=== PATIENT | male | born 1945 | race Caucasian/White ===

== ENCOUNTER → 2021-03-15 08:07 | Outpatient (CLI) | payer MEDICARE, BC, SELFPAY ==
--- NOTE | 2021-03-15 | DI.US.S_ITS ---
PROCEDURE: US ABD AORTA ANEURYSM SCREEN INDICATIONS: AAA SCREEN TECHNIQUE: Real time scanning was performed of the aorta and iliac arteries, with image documentation. COMPARISON: None. FINDINGS: Aorta: Proximal aortic diameter measures 1.8 cm. Mid-aorta measures 1.6 cm. Distal aortic diameter is 1.9 cm. Iliac arteries: Right common iliac artery measures 0.6 cm. Left common iliac artery measures 0.6 cm. IMPRESSION: Negative for aneurysm. Dictated by: Craig Colin M.D. on 03/15/2021 at 9:11 Approved by: Craig Colin M.D. on 03/15/2021 at 9:12
== END ==
PROVIDERS: PCP Family Medicine; Referring Provider Family Medicine; Visit Provider Family Medicine
DX: Z13.6 Encounter for screening for cardiovascular disorders (principal)
CPT/HCPCS: 76706

== ENCOUNTER 2024-05-09 09:58 | Day surgery (SDC) | payer MEDICARE, BC, SELFPAY ==
--- NOTE | 2024-05-09 | PATH_ITS ---
[facility] Accession Number: [id number] No. of containers..03 Tissue . 01 Material submitted: . PART A: cecum - CECAL POLYPS PART B: colon - ASCENDING POLYP PART C: colon - DESCENDING POLYP . 01 Diagnosis: CECUM, POLYPECTOMIES: Tubular adenoma(s), 2 fragments. - COLON, ASCENDING, POLYPECTOMY: Tubular adenoma. - COLON, DESCENDING, POLYPECTOMY: Tubular adenoma. [facility] 05/13/2024 1539 Local . 01 Electronically signed: . Tamara Hall MD, Pathologist NPI- [id number] . 01 Gross description: . A. Received in formalin with two patient identifiers and cecal polyps, are multiple junior soft tissue fragments aggregating to 1.8 x 1.0 x 0.3 cm. Filtered and submitted in cassette A1 B. Received in formalin with two patient identifiers and ascending polyp, is a single junior soft tissue fragment 1.0 cm in greatest dimension. Submitted in cassette B1. C. Received in formalin with two patient identifiers and descending polyp, is a single junior soft tissue fragment 1.4 cm in greatest dimension. Submitted in cassette C1. ([id number]) /[facility] 05/10/2024 1004 Local . 01 Pathologist provided ICD-10: Z12.11 . 01 CPT . 006619, [id number], [id number] Specimen Comment: A courtesy copy of this report has been sent to [phone] Performed at: [address] [id number] MD Dariusz Keys MD Phone: [phone]
[2024-05-09 10:20] VITALS: BP 171/85; PULSE 75; RESP 16; TEMP 36.1; O2SAT 99
--- NOTE | 2024-05-09 10:24 | PM.HP.1 ---
History of Present Illness History of Present Illness Date Patient Seen: 05/09/24 Time Patient Seen: 10:24 Chief complaint: SDC Narrative: Hussein is a 78 year old man here for a colonoscopy. His last was 6 or 7 years ago and he believes polyps were removed. No known family history of colon cancer. Meds Home Medications and Allergies Home Medications Medication Instructions Recorded Confirmed Type finasteride 5 mg tablet 5 mg PO DAILY 05/09/24 05/09/24 History Allergies Allergy/AdvReac Type Severity Reaction Status Date / Time No Known Drug Allergies Allergy Verified 05/09/24 10:15 Exam Const General: No acute distress Resp Effort & Inspection: normal respiratory effort Assessment & Plan Assessment and plan (1) Colon cancer screening: Status: Acute Plan We reviewed the risks and benefits of colonoscopy and he would like to proceed. Time-Based Coding :: [TOTAL MINUTES] spent with patient and on the chart (including review of chart, obtaining history, exam, reviewing outside data, placing orders, documenting exam and treatment plan, and counseling patient) on [DATE].
[2024-05-09] MEDS: LACTATED RINGERS 1,000 ML 42 ML IV (10:31)
--- NOTE | 2024-05-09 11:22 | PM.HP.1 ---
History of Present Illness History of Present Illness [place] [facility] [place]ative: Hussein is a 78 year old man here for a colonoscopy. His last was 6 or 7 years ago and he believes polyps were removed. No known family history of colon cancer. Meds Home Medications and Allergies Home Medications Medication Instructions Recorded Confirmed Type finasteride 5 mg tablet 5 mg PO DAILY 05/09/24 05/09/24 History Allergies Allergy/AdvReac Type Severity Reaction Status Date / Time No Known Drug Allergies Allergy Verified 05/09/24 10:15 Exam Vital Signs (past 8 hours): - 05/09/24 10:20 Temperature 96.9 F L Pulse Rate 75 Respiratory Rate 16 Blood Pressure 171/85 H Pulse Oximetry 99 Oxygen Delivery Method Room Air Oxygen Delivery Method Room Air Assessment & Plan Assessment and plan (1) Colon cancer screening: Status: Acute Plan We reviewed the risks and benefits of colonoscopy and he would like to proceed Time-Based Coding :: [TOTAL MINUTES] spent with patient and on the chart (including review of chart, obtaining history, exam, reviewing outside data, placing orders, documenting exam and treatment plan, and counseling patient) on [DATE].
--- NOTE | 2024-05-09 11:23 | PM.OP.COLON ---
Operative Date/Time/Diagnoses Date of procedure: 05/09/24 Time of procedure: 11:23 Pre-op diagnosis: Colon cancer screening Procedure & Clinicians Study performed: Colonoscopy Same procedure as scheduled: Yes Surgeon: Abimael Soler Procedure Notes Procedure in detail: Surgeon: Abimael Soler MD Anesthesia: Virgil Anderson D.O. Procedure: The patient was brought to the endoscopy suite, placed in left lateral decubitus position. The patient was connected to monitoring devices. A time-out was performed. Sedation was administered. Once the patient was adequately sedated, a digital rectal exam was performed and was normal. The scope was then inserted and advanced to the cecum where the appendiceal orifice was identified and photographed. The scope was then slowly withdrawn over greater than 6 minutes. The mucosa was thoroughly inspected. There were 2 5 mm polyps in the cecum removed with a cold snare. There was 1 5 mm polyp in the ascending colon removed with a cold snare. There was 1 5 mm polyp in the descending colon removed with a cold snare. The scope was retroflexed in the rectum. No other abnormalities were noted. The scope was straightened and removed. The patient was awakened and brought to recovery. Scope withdrawal time: 14 minutes Sedation time: 19 minutes EBL: 5 mL Findings: 5 small polyps as detailed above Post-procedure Disposition: PACU
[2024-05-09 11:25] VITALS: BP 88/48; PULSE 63; RESP 16; TEMP 36.9; O2SAT 94
[2024-05-09 11:30] VITALS: BP 112/63; PULSE 77; RESP 17; O2SAT 97
[2024-05-09 11:33] VITALS: BP 106/65; PULSE 72; RESP 19; O2SAT 98
[2024-05-09 11:35] VITALS: BP 128/71; PULSE 69; RESP 19; O2SAT 98
[2024-05-09 11:39] VITALS: BP 134/72; PULSE 64; RESP 16; TEMP 36.7; O2SAT 98
== END 2024-05-09 11:48 | disposition home or self-care (01) ==
PROVIDERS: PCP Family Medicine; Referring Provider Surgery; Visit Provider Surgery
PROC: 0DJD8ZZ Inspection of Lower Intestinal Tract, Via Natural or Artificial Opening Endoscopic (ICD-10-PCS; CPT 45378; principal; 2024-05-09 11:00)
DX: Z12.11 Encounter for screening for malignant neoplasm of colon (principal); D12.0 Benign neoplasm of cecum; D12.2 Benign neoplasm of ascending colon; D12.4 Benign neoplasm of descending colon
CPT/HCPCS: 45385; J2704

== ENCOUNTER → 2025-01-10 15:42 | Outpatient (CLI) | payer MEDICARE, BC, SELFPAY ==
--- NOTE | 2025-01-10 15:45 | DI.RAD.S_ITS ---
PROCEDURE: XR LUMBAR SPINE 6V W BENDING INDICATIONS: R LEG PAIN TECHNIQUE: 7 views of the lumbar spine acquired, including flexion and extension views. COMPARISON: None. FINDINGS: Bones: 5 nonrib-bearing vertebrae are present. Mild levocurvature of the lower lumbar spine. Mild retrolisthesis of L2 on L3 and L3 on L4.. No vertebral body compression fractures. No suspicious bony lesions. There is multilevel facet arthropathy, worse at L4-5 and L5-S1. Mild multilevel disc height loss with degenerative endplate changes and spurring is present. Soft tissues: Overlying bowel gas pattern is normal. No suspicious soft tissue calcifications. Atherosclerotic vascular calcifications. Flexion/extension: There is limited range of motion, with preserved alignment. IMPRESSION: Multilevel degenerative changes of the lumbar spine with limited range of motion. Dictated by: Anibal Guerra M.D. on 01/12/2025 at 21:47 Approved by: Anibal Guerra M.D. on 01/12/2025 at 21:48
== END ==
PROVIDERS: PCP Family Medicine; Referring Provider Family Medicine; Visit Provider Family Medicine
DX: M47.816 Spondylosis without myelopathy or radiculopathy, lumbar region (principal); M47.817 Spondylosis without myelopathy or radiculopathy, lumbosacral region; M79.604 Pain in right leg
CPT/HCPCS: 72114

== ENCOUNTER 2025-01-14 12:34 | Emergency (ER) | payer MEDICARE, BC, SELFPAY ==
[2025-01-14 12:40] VITALS: BP 178/79; PULSE 77; RESP 18; TEMP 36.9; O2SAT 100; BMI 26.0
--- NOTE | 2025-01-14 13:14 | DI.US.S_ITS ---
PROCEDURE: US PERIPH VENOUS LOW EXTREM RT INDICATIONS: leg pain TECHNIQUE: Real-time imaging, as well as color and pulse Doppler interrogation, were performed of the lower extremity deep veins from the inguinal ligament to the popliteal fossa, with documentation of the visualized calf veins. COMPARISON: None. FINDINGS: The common femoral, femoral, popliteal, and the visualized calf veins are normally compressible, and free of intraluminal thrombus. Color and pulse Doppler demonstrate normal phasic intraluminal flow. There is normal augmentation response to distal compression maneuver. IMPRESSION: No evidence of DVT in visualized right lower extremity veins. Dictated by: Oscar Chau M.D. on 01/14/2025 at 14:08 Approved by: sOcar Chau M.D. on 01/14/2025 at 14:15
--- NOTE | 2025-01-14 15:13 | ED.EXTPRO ---
HPI - Extremity Problem <Mundo Lobo PA-C - Last Filed: 01/14/25 15:23> General Chief complaint: Extremity Problem,Nontraumatic Stated complaint: Pain in right leg Time Seen by Provider: 01/14/25 13:14 Source: patient and family Mode of arrival: Ambulatory History of Present Illness HPI Narrative: 79-year-old male presents to the ED with 2 weeks of right thigh pain. Patient has seen his PCP for this twice already. PCP suspects a lower back etiology, obtained a lumbar spine x-ray which was negative. Patient denies trauma, injuries. Patient took 1 dose of gabapentin yesterday, however PCP increased his dose to 300 mg t.i.d. this morning. Patient denies lower back pain, fever, chills, dysuria, urinary hesitancy, saddle paresthesias, weakness, numbness, tingling. Patient has difficulty localizing the pain, however describes it as being the right front thigh. Related Data Home Medications Medication Instructions Recorded Confirmed finasteride 5 mg tablet 5 mg PO DAILY 05/09/24 05/09/24 Previous Rx's Medication Instructions Recorded cyclobenzaprine 10 mg tablet 10 mg PO TID PRN muscle spasm #14 01/14/25 tabs gabapentin 300 mg capsule 300 mg PO TID 10 days #30 caps 01/14/25 tramadol 50 mg tablet 50 mg PO Q8H PRN pain #14 tabs 01/14/25 Allergies Allergy/AdvReac Type Severity Reaction Status Date / Time No Known Drug Allergies Allergy Verified 05/09/24 10:15 Review of Systems <Mundo Lobo PA-C - Last Filed: 01/14/25 15:23> Constitutional Constitutional: Denies chills, Denies fatigue, Denies fever(s), Denies frequent falls, Denies lethargy and Denies weakness Eyes Eyes: Denies change in vision, Denies eye discharge, Denies irritation and Denies loss of vision ENT Ears, Nose, Mouth, and Throat: Denies change in voice, Denies dizziness, Denies neck pain, Denies sore throat and Denies throat swelling Cardiovascular Cardiovascular: Denies chest pain, Denies irregular heart rhythm, Denies lightheadedness, Denies palpitations, Denies dyspnea, Denies dyspnea on exertion and Denies orthopnea Respiratory Respiratory: Denies cough, Denies dyspnea, Denies dyspnea on exertion and Denies wheezing Gastrointestinal Gastrointestinal: Denies abdominal pain, Denies change in bowel habits, Denies diarrhea, Denies nausea and Denies vomiting Musculoskeletal Musculoskeletal: Denies neck pain and Denies numbness Comments: Right front thigh pain Integumentary/Breasts Skin/Breast: Denies pruritus, Denies erythema, Denies rash and Denies wounds Neurologic Neurologic: Denies behavioral changes, Denies confusion, Denies dizziness, Denies frequent falls, Denies loss of vision, Denies numbness and Denies weakness Psychiatric Psychiatric: Denies anxiety, Denies behavioral changes, Denies confusion, Denies depression, Denies homicidal ideation and Denies suicidal ideation Endocrine Endocrine: Denies fatigue, Denies flushing and Denies palpitations Hematologic/Lymphatic Hematologic/Lymphatic: Denies easy bruising Allergic/Immunologic Allergic/Immunologic: Denies urticaria, Denies throat swelling and Denies wheezing Patient History <Mundo Lobo PA-C - Last Filed: 01/14/25 15:23> Social History Smoking Status: Never smoker alcohol intake: never Smoking Status: Never smoker Exam <Mundo Lobo PA-C - Last Filed: 01/14/25 15:23> Narrative Exam Narrative: Const General:?cooperative, healthy appearing and comfortable [facility] Head:?normal to inspection Ears:?hearing grossly normal bilaterally Nose:?external nose normal Face and sinus:?normal facial exam and sinuses nontender Mouth:?oral mucosae normal Throat:?posterior oropharynx normal Eyes General:?appearance normal, both eyes and all related structures Neck Neck:?normal visual inspection and no lymphadenopathy noted Resp Effort & Inspection:?normal respiratory effort Auscultation:?clear to auscultation bilaterally Cardio Rate:?regular rate Rhythm:?regular rhythm Musculoskeletal No tenderness to palpation. No deformities. Patient is able to bear weight and walk, albeit with pain. Neurovascularly intact. Neuro General:?patient alert, patient awake and patient oriented x3 Initial Vital Signs Initial Vital Signs: Vital Signs Temperature 98.4 F 01/14/25 12:40 Pulse Rate 77 01/14/25 12:40 Respiratory Rate 18 01/14/25 12:40 Blood Pressure 178/79 H 01/14/25 12:40 Pulse Oximetry 100 01/14/25 12:40 Oxygen Delivery Method Room Air 01/14/25 12:40 <Clara Horn DO - Last Filed: 01/14/25 19:11> Initial Vital Signs Initial Vital Signs: Vital Signs Temperature 98.4 F 01/14/25 12:40 Pulse Rate 77 01/14/25 12:40 Respiratory Rate 18 01/14/25 12:40 Blood Pressure 178/79 H 01/14/25 12:40 Pulse Oximetry 100 01/14/25 12:40 Oxygen Delivery Method Room Air 01/14/25 12:40 Course <Mundo Lobo PA-C - Last Filed: 01/14/25 15:23> Orders Ordered: ED Orders 01/14/25 13:14 US periph venous low extrem rt Stat Vital Signs Vital signs: Vital Signs - 8 hr 01/14/25 12:40 01/14/25 15:21 Temperature 98.4 F Pulse Rate 77 75 Respiratory Rate 18 18 Blood Pressure 178/79 H 169/78 H Pulse Oximetry 100 100 Oxygen Delivery Method Room Air Room Air <DO Lexus Hinojosa Last Filed: 01/14/25 19:11> Orders Ordered: ED Orders 01/14/25 13:14 US periph venous low extrem rt Stat Vital Signs Vital signs: Vital Signs - 8 hr 01/14/25 12:40 01/14/25 15:21 Temperature 98.4 F Pulse Rate 77 75 Respiratory Rate 18 18 Blood Pressure 178/79 H 169/78 H Pulse Oximetry 100 100 Oxygen Delivery Method Room Air Room Air MDM - Extremity (Nontraumatic) <JOSE LUIS Mack Last Filed: 01/14/25 15:23> MDM Narrative Medical decision making narrative: 79-year-old male presents to the ED with 2 weeks of right thigh pain. Ultrasound was obtained to rule out DVTs. Ultrasound negative for DVTs. Discussed with patient that the next logical step is to follow-up with PCP for further imaging/evaluation/referrals. Patient and agreed that pain control would be a good 1st step in the process. Patient has been prescribed the increased dose of gabapentin, tramadol, Flexeril. Fall precautions discussed with patient and patient's . They agree to follow-up with the PCP as soon as possible. ED return precautions discussed with patient and patient's . They verbalized understanding. Medical records reviewed: Yes Discharge Plan Departure Patient Disposition: Home Clinical Impression: Leg pain Qualifiers: Laterality: right Qualified Code(s): M79.604 - Pain in right leg Instructions: DI for Leg Pain Activity Restrictions/Additional Instructions: You were evaluated in the ED today for right-sided leg pain. The ultrasound did not show any clots/DVTs. It appears that your leg pain is due to a musculoskeletal sprain/strain versus a lower back disc issue. Please follow-up with your PCP for further evaluation, imaging and referrals. You are being prescribed pain medications for symptom relief. Please note that these medications can make you sleepy, therefore please exercise good fall precautions. Return to the ED if you have worsening symptoms. Prescriptions: New tramadol 50 mg tablet 50 mg PO Q8H PRN (Reason: pain) Qty: 14 0RF gabapentin 300 mg capsule 300 mg PO TID 10 Days Qty: 30 0RF cyclobenzaprine 10 mg tablet 10 mg PO TID PRN (Reason: muscle spasm) Qty: 14 0RF No Action finasteride 5 mg tablet 5 mg PO DAILY Referrals: Denisse Cifuentes MD [Primary Care Provider] - Stand Alone Forms: Patient Portal/API/Survey ED Sign-out <Clara Horn DO - Last Filed: 01/14/25 19:11> Cosign ED Attending [place] Attestation: I was immediately available in the department for consultation.
[2025-01-14 15:21] VITALS: BP 169/78; PULSE 75; RESP 18; O2SAT 100
== END 2025-01-14 15:22 | disposition home or self-care (01) ==
PROVIDERS: Emergency Provider Student in an Organized Health Care Education/Training Program; PCP Family Medicine
DX: M79.604 Pain in right leg (principal)
CPT/HCPCS: 93971; 99281; 99283

== ENCOUNTER → 2025-01-15 19:04 | Outpatient (CLI) | payer MEDICARE, BC, SELFPAY ==
--- NOTE | 2025-01-15 19:07 | DI.MRI.S_ITS ---
PROCEDURE: MR LUMBAR SPINE WO CON INDICATIONS: Acute lower back pain TECHNIQUE: Noncontrast sagittal T1 spin echo and T2 fast echo, sagittal STIR, and T2 fast spin echo through the lumbar spine. In cases with scoliosis, additional coronal T2 fast spin echo may be performed. COMPARISON: None. FINDINGS: Image quality: Excellent. Some images are partially limited by patient motion artifacts, pulsation artifacts. On the sagittal STIR images, series 4 images 1-3 there is asymmetric increased signal, edema on the right at the L4 level which commonly may be related to paraspinous muscle injury/strain however nondisplaced fracture of the right L4 transverse process could give this appearance. Moderate to severe multilevel degenerative changes with disc desiccation, disc height loss, circumferential diffuse disc bulges, facet osseous and ligamentous hypertrophic changes. Alignment and Curvature: Mild straightening of the normal lumbar lordosis. Bone Marrow: Heterogeneous bone marrow signal of the vertebral bodies commonly age-related or hematopoietic marrow. No acute vertebral body compression fractures. Spinal Cord: Conus medullaris terminates at the L1-2 level. Visualized cord demonstrates normal signal and size. T12-L1: Normal appearance. L1-L2: Normal appearance. L2-L3: Moderate degenerative changes with broad-based posterior disc bulge flattens the anterior thecal sac without central stenosis or significant neural foraminal narrowing. L3-L4: Circumferential disc bulge which flattens the anterior thecal sac, facet osseous and ligamentous hypertrophic changes with mild to moderate bilateral neural foraminal narrowing. No central stenosis. L4-L5: Diffuse circumferential disc bulge with far right lateral component that may abut the exiting right L4 nerve root and there is moderate to severe right neural foraminal narrowing moderate left neural foraminal narrowing without central stenosis L5-S1: Diffuse circumferential disc bulge with far right lateral component that may abut the exiting right L5 nerve root. Moderate to severe right neural foraminal narrowing, moderate left neural foraminal narrowing, no central stenosis. IMPRESSION: Asymmetric edema in the right lateral paraspinous tissues at L4 as discussed above may be an indication of muscle strain and / or right L4 transverse process fracture. Multilevel degenerative changes as discussed above most notably L4-5 and L5-S1 No MR evidence of vertebral body compression fracture. Dictated by: Aakash Riley M.D. on 01/16/2025 at 8:09 Approved by: Aakash Riley M.D. on 01/16/2025 at 8:28
== END ==
PROVIDERS: PCP Family Medicine; Referring Provider Family Medicine; Visit Provider Family Medicine
DX: M47.816 Spondylosis without myelopathy or radiculopathy, lumbar region (principal); M47.817 Spondylosis without myelopathy or radiculopathy, lumbosacral region; M54.50 Low back pain, unspecified
CPT/HCPCS: 72148

== ENCOUNTER → 2025-07-09 15:14 | Outpatient (CLI) | payer MEDICARE, BC, SELFPAY ==
--- NOTE | 2025-07-09 15:15 | DI.CT.S_ITS ---
PROCEDURE: CT LUMBAR SPINE WO CON INDICATIONS: radiculopathy lumbar region TECHNIQUE: Noncontrast 3 mm thick sections acquired from the T12 level to the sacrum. Sagittal and coronal reformats were constructed. For radiation dose reduction, the following was used: automated exposure control. COMPARISON: [facility], MR, MR LUMBAR SPINE WO CON, 01/15/2025, 19:22. FINDINGS: Image quality: Excellent. Bones: There is trace retrolisthesis of L3 on L4, L4 on L5 and L5 on S1. Scattered anterior osteophytes are present. No acute vertebral body compression fractures. No suspicious lytic or blastic bony lesions. No pars defects. Disc bulges are present at L2-3, L3-4, L4-5 and L5-S1. Appearance has not significantly changed compared to prior exam. Minimal to mild spinal stenosis L2-3, L4-5, unchanged. [id number] bilateral foraminal narrowing L3-4 moderate to severe right and moderate left L4-5, moderate to severe right and moderate left L5-S1. Unchanged appearance of slight compression of the exiting right L4 nerve root as well as L5. Facet and ligamentum flavum hypertrophy are present. Soft tissues: No retroperitoneal masses or hematomas. Visualized aorta is normal in caliber. IMPRESSION: Multilevel disc bulges, spinal stenosis and foraminal narrowing overall stable compared to prior exam. Most severe foraminal narrowing remains at L4-5 and L5-S1 with slight compression of the exiting right L4 and L5 nerve roots. Dictated by: Dorene Galarza M.D. on 07/11/2025 at 14:05 Approved by: Dorene Galarza M.D. on 07/11/2025 at 14:11
== END ==
LOC: CT 15:15
PROVIDERS: Family Provider Family Medicine; PCP Family Medicine; Referring Provider Family Medicine; Visit Provider Naturopath
DX: M54.16 Radiculopathy, lumbar region (principal)
CPT/HCPCS: 72131